=== PATIENT | female | born 1955 | race Caucasian/White ===

== ENCOUNTER 2018-03-24 12:46 | Emergency (ER) | payer OTHER ==
--- NOTE | 2018-03-24 13:36 | ED Physician Documentation ---
General Adult - HISTORIAN Historian: patient - HPI Stated Complaint: Chest Discomfort Chief Complaint: General Adult Additional Information: Sweats, flutters in chest, elevated glucose to 320 today. Started medrol dose pack 03/23 for increased pain of psoriatic arthritis. 50 mg/d x 2 days, and 40 mg/d today. Is scheduled to take 40 mg tomorrow, then 2 days each of 30, 20 and 10 mg. Parents had bypass grafts in their 70's so she wanted to have chest sensations investigated. NIDDM, chronic back pain, fibromyalgia. No modifying factors or other associated signs. - ROS CONST: sweating (when glucose is elevated) - PAST HX Past History: other (above) Surgeries/Procedures: other (lumbar diskectomy at 21) Allergies/Adverse Reactions: Allergies Allergy/AdvReac Type Severity Reaction Status Date / Time No Known Allergies Allergy Verified 03/24/18 13:18 Home Medications: Ambulatory Orders Medication Instructions Recorded Bupropion HCl [Wellbutrin] 400 mg PO DAILY 11/05/13 Lovastatin 20 mg PO DAILY 11/05/13 Metformin HCl [Glucophage] 850 mg PO DAILY 11/05/13 Lisinopril [Prinivil] 40 mg PO DAILY 05/09/14 Trazodone HCl [Desyrel] 300 mg PO HS 05/09/14 traMADol HCL [Ultram] 50 mg PO QID PRN 05/09/14 LORazepam [Ativan] 1 mg PO PRN PRN 03/24/18 Levothyroxine Sodium [Synthroid] 175 mcg PO DAILY 03/24/18 Meloxicam 15 mg PO TID 03/24/18 Prednisone 10 mg PO 03/24/18 Pregabalin [Lyrica] 225 mg PO BID 03/24/18 Tizanidine HCl 2 mg PO QID 03/24/18 Venlafaxine HCl [Venlafaxine HCl 75 mg PO DAILY 03/24/18 ER] - SOCIAL HX Smoking History: non-smoker Alcohol Use: none Drug Use: none - FAMILY HX Family History: Yes (F with DE at 43. M and F with bypass grafts in 70's. DM) - VITAL SIGNS Vital Signs: Vital Signs Temp Pulse Resp BP Pulse Ox 98 F 95 H 22 146/78 98 03/24/18 12:48 03/24/18 12:48 03/24/18 12:48 03/24/18 12:48 03/24/18 12:48 - REVIEWED ASSESSMENTS Nursing Assessment Reviewed: Yes Vitals Reviewed: Yes Progress - Progress Progress: EKG: sinus tach, 101 BPM, occasional PVC's UA with trace leukocytes Report Submission Date: Mar 24, 2018 2:12:29 PM CDT Patient Study Name: LEENA LEGER Date: Mar 24, 2018 1:34:52 PM CDT Modality Type: DX Gender: F Description: CHEST : 57 Institution: [facility] Physician: AHSAN PHIPPS - ER Chest, PA and lateral History: Chest pain Findings: No infiltrate, effusion or pneumothorax is present. Heart size, mediastinum and pulmonary vascularity are normal. Impression: No active pulmonary disease. Electronically signed on Mar 24, 2018 2:12:29 PM CDT by: Venkatesh Bailey Report Submission Date: Mar 24, 2018 2:13:08 PM CDT Patient Study Name: LEENA LEGER Date: Mar 24, 2018 1:39:24 PM CDT Modality Type: DX Gender: F Description: PELVIS : 57 Institution: [facility] Physician: AHSAN PHIPPS - ER Left hip, 2 images History: Hip pain Findings: The osseous, joint and soft tissue structures are normal. Impression: Normal. Electronically signed on Mar 24, 2018 2:13:08 PM CDT by: Venkatesh Bailey Labs, EKG, reassuring, including serial Trop I's. So cardiology not involved. ED Results Lab/Radiology - Orders Orders: ED Orders Category Date Time Status Place IV Lock 1T Care 03/24/18 13:25 Active CHEST 2VIEW [RAD] Stat Exams 03/24/18 Ordered LT HIP 2VIEW COMPLETE [RAD] Stat Exams 03/24/18 Ordered CBC/PLATELET/DIFF Routine Lab 03/24/18 Ordered CMP Routine Lab 03/24/18 Ordered TROPONIN I (cTnI) Stat Lab 03/24/18 13:31 Received URINALYSIS Routine Lab 03/24/18 Ordered General Adult Physical Exam - PHYSICAL EXAM GENERAL APPEARANCE: mild distress EENT: eye inspection normal, ENT inspection normal (dentures), pharynx normal NECK: normal inspection, supple RESPIRATORY: no resp distress, breath sounds normal CVS: reg rate & rhythm, heart sounds normal, other (PVC's on monitor and EKG) ABDOMEN: soft, normal bowel sounds, non-tender BACK: normal inspection, no CVA tenderness, other (no vertebral tenderness) SKIN: normal color, diaphoresis (mild) EXTREMITIES: non-tender, no evidence of injury, no edema NEURO: CN's nml as tested, motor nml, cognition normal Discharge Clincal Impression: Side effect of medication Referrals: Primary Doctor,Majo [Primary Care Provider] - 2 Days Additional Instructions: Your lab test results, EKG and x-ray, were all reassuring. he symptoms you describe can be side effects of prednisone. Condition: Fair Disposition: 01 HOME, SELF-CARE Decision to Admit: NO Decision Time: 16:15
[2018-03-24 14:00] LABS: BASOPHILS % 0.3 (0.0-1.5); EOSINOPHILS % 0.1 % (0.0-6.8); MEAN CORPUSCULAR HEMOGLOBIN 24.1 pg (28.0-34.0); MEAN CORPUSCULAR VOLUME 80.2 fl (80.0-100.0); MONOCYTES % 1.8 % (0.0-11.0); NEUTROPHILS # 6.8 # k/uL (1.4-7.7); eGFR (African) > 60; eGFR (Non-African) > 60
[2018-03-24] MEDS ORDERED: NITROFURANTOIN 100 MG CAPSULE PO ONE (14:04)
--- NOTE | 2018-03-24 14:21 | Diagnostic Imaging Report ---
AHSAN PHIPPS [facility] [address] [facility] [address] [place] [address]. [id number] Report Submission Date: Mar 24, 2018 2:13:08 PM CDT Patient Study Name: LEENA LEGER Date: Mar 24, 2018 1:39:24 PM CDT Modality Type: DX Gender: F Description: PELVIS : 57 Institution: [facility] Physician: AHSAN PHIPPS Left hip, 2 images History: Hip pain Findings: The osseous, joint and soft tissue structures are normal. Impression: Normal. Electronically signed on Mar 24, 2018 2:13:08 PM CDT by: Venkatesh ADDISON
--- NOTE | 2018-03-24 14:21 | Diagnostic Imaging Report ---
AHSAN PHIPPS [facility] [address] [facility] [address] [id number] Report Submission Date: Mar 24, 2018 2:12:29 PM CDT Patient Study Name: LEENA LEGER Date: Mar 24, 2018 1:34:52 PM CDT Modality Type: DX Gender: F Description: CHEST : 57 Institution: [facility] Physician: AHSAN PHIPPS Chest, PA and lateral History: Chest pain Findings: No infiltrate, effusion or pneumothorax is present. Heart size, mediastinum and pulmonary vascularity are normal. Impression: No active pulmonary disease. Electronically signed on Mar 24, 2018 2:12:29 PM CDT by: Venkatesh ADDISON
[2018-03-24 16:29] VITALS: BP 154/81
[2018-03-27 10:27] LABS: APPEARANCE,URINE CLEAR (CLEAR); COLOR,URINE YELLOW (YELLOW); OCCULT BLOOD,URINE NEGATIVE (NEGATIVE); PH URINE 5.5 (5.0 - 8.0); UROBILINOGEN URINE 0.2 Eu (0.2-1.0)
== END 2018-03-24 16:26 | disposition home or self-care (01) ==
LOC: ED 12:46
DX: R07.89 Other chest pain (principal); T88.7XXA Unspecified adverse effect of drug or medicament, initial encounter; Y92.9 Unspecified place or not applicable; Y93.9 Activity, unspecified; Y99.9 Unspecified external cause status
CPT/HCPCS: 71046; 80053; 81002; 84484; 85025; S1016